=== PATIENT | male | born 1980 | race Caucasian/White ===

== ENCOUNTER 2021-09-08 09:34 | Day surgery (SDC) | payer OTHER ==
[2021-09-06 13:13] VITALS: BMI 29.5
[2021-09-08] MEDS ORDERED: KETAMINE HCL 500 MG/10 ML VIAL ONE (10:56)
[2021-09-08 12:42] VITALS: BP 122/70; PULSE 67; TEMP 97.8
== END 2021-09-08 12:25 | disposition home or self-care (01) ==
LOC: FECT 09:34 → EDBD 11:00 → FECT 12:25
PROVIDERS: ATTEND Psychiatry & Neurology Psychiatry
PROC: GZB4ZZZ Other Electroconvulsive Therapy (ICD-10-PCS; principal; 2021-09-08 11:00)
DX: F32.9 Major depressive disorder, single episode, unspecified (principal)
CPT/HCPCS: 90870; 94760

== ENCOUNTER 2021-09-09 06:20 | Day surgery (SDC) | payer OTHER ==
[2021-09-06 13:32] VITALS: BMI 29.5
[2021-09-09] MEDS ORDERED: KETAMINE HCL 500 MG/10 ML VIAL ONE (07:53)
[2021-09-09 09:35] VITALS: PULSE 76; TEMP 98.1
[2021-09-09 09:37] VITALS: BP 130/84
== END 2021-09-09 09:30 | disposition home or self-care (01) ==
LOC: FECT 06:20
PROVIDERS: ATTEND Psychiatry & Neurology Psychiatry
PROC: GZB4ZZZ Other Electroconvulsive Therapy (ICD-10-PCS; principal; 2021-09-09 08:30)
DX: F32.9 Major depressive disorder, single episode, unspecified (principal)
CPT/HCPCS: 90870; 94760; C9803; U0003; U0005

== ENCOUNTER 2021-09-15 06:25 | Day surgery (SDC) | payer OTHER ==
[2021-09-08 07:56] VITALS: BMI 29.5
[2021-09-15 09:41] VITALS: TEMP 97.8
[2021-09-15 10:02] VITALS: BP 131/82; PULSE 69
== END 2021-09-15 10:00 | disposition home or self-care (01) ==
LOC: FECT 06:25
PROVIDERS: ATTEND Psychiatry & Neurology Psychiatry
PROC: GZB4ZZZ Other Electroconvulsive Therapy (ICD-10-PCS; principal; 2021-09-15 08:30)
DX: F32.9 Major depressive disorder, single episode, unspecified (principal)
CPT/HCPCS: 90870; 94760

== ENCOUNTER 2021-09-16 06:33 | Day surgery (SDC) | payer OTHER ==
[2021-09-13 13:03] VITALS: BMI 29.5
[2021-09-16] MEDS ORDERED: KETAMINE HCL 500 MG/10 ML VIAL ONE (08:18)
[2021-09-16 09:11] VITALS: TEMP 97.8
[2021-09-16 09:37] VITALS: BP 130/83; PULSE 84
== END 2021-09-16 09:45 | disposition home or self-care (01) ==
LOC: FECT 06:33
PROVIDERS: ATTEND Psychiatry & Neurology Psychiatry
PROC: GZB4ZZZ Other Electroconvulsive Therapy (ICD-10-PCS; principal; 2021-09-16 07:30)
DX: F32.9 Major depressive disorder, single episode, unspecified (principal)
CPT/HCPCS: 90870; 94760; C9803; U0003; U0005

== ENCOUNTER 2021-09-19 09:05 | Day surgery (SDC) | payer OTHER ==
[2021-09-13 13:25] VITALS: BMI 29.5
[2021-09-19] MEDS ORDERED: KETAMINE HCL 500 MG/10 ML VIAL ONE (10:29)
[2021-09-19 11:45] VITALS: TEMP 97.8
[2021-09-19 12:16] VITALS: BP 129/89; PULSE 73
== END 2021-09-19 12:21 | disposition home or self-care (01) ==
LOC: FECT 09:05
PROVIDERS: ATTEND Psychiatry & Neurology Psychiatry
PROC: GZB4ZZZ Other Electroconvulsive Therapy (ICD-10-PCS; principal; 2021-09-19 08:00)
DX: F32.9 Major depressive disorder, single episode, unspecified (principal)
CPT/HCPCS: 90870; 94760; C9803; U0003; U0005

== ENCOUNTER 2021-09-22 08:34 | Day surgery (SDC) | payer OTHER ==
[2021-09-14 14:56] VITALS: BMI 29.5
[2021-09-22] MEDS ORDERED: KETAMINE HCL 500 MG/10 ML VIAL ONE (09:33)
[2021-09-22 10:38] VITALS: TEMP 97.8
[2021-09-22 10:57] VITALS: BP 135/90; PULSE 84
== END 2021-09-22 11:00 | disposition home or self-care (01) ==
LOC: FECT 08:34
PROVIDERS: ATTEND Psychiatry & Neurology Psychiatry
PROC: GZB4ZZZ Other Electroconvulsive Therapy (ICD-10-PCS; principal; 2021-09-22 09:30)
DX: F32.9 Major depressive disorder, single episode, unspecified (principal)
CPT/HCPCS: 90870; 94760

== ENCOUNTER 2021-09-23 07:19 | Day surgery (SDC) | payer OTHER ==
[2021-09-14 15:00] VITALS: BMI 29.5
[2021-09-23] MEDS ORDERED: PROPOFOL 20 ML ONE (08:15)
[2021-09-23] MEDS ORDERED: SUCCINYLCHOLINE CHLORIDE 200 MG/10 ML SYRINGE ONE (08:15)
[2021-09-23] MEDS ORDERED: KETAMINE HCL 500 MG/10 ML VIAL ONE (09:02)
[2021-09-23 11:50] VITALS: BP 122/71; PULSE 84; TEMP 97.8
== END 2021-09-23 10:30 | disposition home or self-care (01) ==
LOC: FECT 07:19
PROVIDERS: ATTEND Psychiatry & Neurology Psychiatry
PROC: GZB4ZZZ Other Electroconvulsive Therapy (ICD-10-PCS; principal; 2021-09-23 08:30)
DX: F32.9 Major depressive disorder, single episode, unspecified (principal)
CPT/HCPCS: 90870; 94760; C9803; U0003; U0005

== ENCOUNTER 2021-09-26 08:02 | Day surgery (SDC) | payer OTHER ==
[2021-09-26 08:20] VITALS: TEMP 97.3; BMI 29.5
[2021-09-26] MEDS ORDERED: KETAMINE HCL 500 MG/10 ML VIAL ONE (09:58)
[2021-09-26] MEDS ORDERED: LACTATED RINGERS SOLUTION 1,000 ML IV SCH (11:30)
[2021-09-26 11:31] VITALS: BP 131/81; PULSE 66
== END 2021-09-26 11:35 | disposition home or self-care (01) ==
LOC: FECT 08:02
PROVIDERS: ATTEND Psychiatry & Neurology Psychiatry
PROC: GZB4ZZZ Other Electroconvulsive Therapy (ICD-10-PCS; principal; 2021-09-26 09:30)
DX: F32.9 Major depressive disorder, single episode, unspecified (principal)
CPT/HCPCS: 90870; 94760; C9803; U0003; U0005

== ENCOUNTER 2021-09-28 06:29 | Day surgery (SDC) | payer OTHER ==
[2021-09-28 06:55] VITALS: BMI 29.5
[2021-09-28] MEDS ORDERED: KETAMINE HCL 500 MG/10 ML VIAL ONE (07:14)
[2021-09-28] MEDS ORDERED: LABETALOL HCL 5 MG/1 ML (100MG/20 ML VIAL) ONE (07:31)
[2021-09-28] MEDS ORDERED: LABETALOL HCL 5 MG/1 ML (100MG/20 ML VIAL) IVPUSH ONE (07:41)
[2021-09-28 08:17] VITALS: PULSE 75; TEMP 98.4
[2021-09-28 09:18] VITALS: BP 125/80
== END 2021-09-28 08:45 | disposition home or self-care (01) ==
LOC: FECT 06:29
PROVIDERS: ATTEND Psychiatry & Neurology Psychiatry
PROC: GZB4ZZZ Other Electroconvulsive Therapy (ICD-10-PCS; principal; 2021-09-28 07:45)
DX: F32.9 Major depressive disorder, single episode, unspecified (principal)
CPT/HCPCS: 90870; 94760; C9803; U0003; U0005

== ENCOUNTER 2021-10-03 07:31 | Day surgery (SDC) | payer OTHER ==
[2021-10-03 08:06] VITALS: BMI 30.6
[2021-10-03] MEDS ORDERED: KETAMINE HCL 500 MG/10 ML VIAL ONE (09:01)
[2021-10-03 09:42] VITALS: TEMP 97.6
[2021-10-03 10:45] VITALS: BP 131/81; PULSE 77
== END 2021-10-03 10:40 | disposition home or self-care (01) ==
LOC: FECT 07:31
PROVIDERS: ATTEND Psychiatry & Neurology Psychiatry
PROC: GZB4ZZZ Other Electroconvulsive Therapy (ICD-10-PCS; principal; 2021-10-03 09:00)
DX: F32.9 Major depressive disorder, single episode, unspecified (principal)
CPT/HCPCS: 90870; 94760; C9803; U0003; U0005

== ENCOUNTER 2021-10-06 06:24 | Day surgery (SDC) | payer OTHER ==
[2021-10-06 07:00] VITALS: BMI 30.5
[2021-10-06] MEDS ORDERED: KETAMINE HCL 500 MG/10 ML VIAL ONE (08:04)
[2021-10-06 09:20] VITALS: TEMP 98
[2021-10-06 09:31] VITALS: BP 141/94; PULSE 88
== END 2021-10-06 09:35 | disposition home or self-care (01) ==
LOC: FECT 06:24
PROVIDERS: ATTEND Psychiatry & Neurology Psychiatry
PROC: GZB4ZZZ Other Electroconvulsive Therapy (ICD-10-PCS; principal; 2021-10-06 08:00)
DX: F32.9 Major depressive disorder, single episode, unspecified (principal)
CPT/HCPCS: 90870; 94760; C9803; U0003; U0005

== ENCOUNTER 2021-10-10 08:31 | Day surgery (SDC) | payer OTHER ==
[2021-10-07 15:52] VITALS: BMI 30.5
[2021-10-10] MEDS ORDERED: PROPOFOL 20 ML ONE (10:32)
[2021-10-10 11:07] VITALS: TEMP 97.5
[2021-10-10 11:44] VITALS: BP 155/91; PULSE 66
== END 2021-10-10 11:40 | disposition home or self-care (01) ==
LOC: FECT 08:31
PROVIDERS: ATTEND Psychiatry & Neurology Psychiatry
PROC: GZB4ZZZ Other Electroconvulsive Therapy (ICD-10-PCS; principal; 2021-10-10 10:00)
DX: F33.2 Major depressive disorder, recurrent severe without psychotic features (principal)
CPT/HCPCS: 90870; 94760

== ENCOUNTER 2021-10-17 07:26 | Day surgery (SDC) | payer OTHER ==
[2021-10-14 11:38] VITALS: BMI 29.5
[2021-10-17] MEDS ORDERED: KETAMINE HCL 500 MG/10 ML VIAL ONE (09:52)
[2021-10-17 10:56] VITALS: TEMP 97.6
[2021-10-17 11:46] VITALS: BP 131/81; PULSE 76
== END 2021-10-17 11:30 | disposition home or self-care (01) ==
LOC: FECT 07:26
PROVIDERS: ATTEND Psychiatry & Neurology Psychiatry
PROC: GZB4ZZZ Other Electroconvulsive Therapy (ICD-10-PCS; principal; 2021-10-17 09:30)
DX: F32.9 Major depressive disorder, single episode, unspecified (principal)
CPT/HCPCS: 90870; 94760

== ENCOUNTER 2021-10-24 08:06 | Day surgery (SDC) | payer OTHER ==
[2021-10-21 16:51] VITALS: BMI 29.5
[2021-10-24 10:29] VITALS: TEMP 98.2
[2021-10-24 10:47] VITALS: BP 133/88; PULSE 73
== END 2021-10-24 11:05 | disposition home or self-care (01) ==
LOC: FECT 08:06
PROVIDERS: ATTEND Psychiatry & Neurology Psychiatry
PROC: GZB4ZZZ Other Electroconvulsive Therapy (ICD-10-PCS; principal; 2021-10-24)
DX: F33.2 Major depressive disorder, recurrent severe without psychotic features (principal)
CPT/HCPCS: 90870; 94760

== ENCOUNTER 2021-11-07 11:55 | Day surgery (SDC) | payer OTHER ==
[2021-10-06 13:32] VITALS: BMI 30.5
[2021-11-07] MEDS ORDERED: KETAMINE HCL 500 MG/10 ML VIAL ONE (13:20)
[2021-11-07] MEDS ORDERED: KETOROLAC TROMETHAMINE 30 MG/1 ML VIAL ONE (13:26)
[2021-11-07] MEDS ORDERED: LIDOCAINE HCL/PF 2% SDV 5ML VIAL ONE (13:28)
[2021-11-07] MEDS: LABETALOL HCL 5 MG/1 ML (100MG/20 ML VIAL) IVPUSH ONE ×2 (13:55→14:20)
[2021-11-07] MEDS ORDERED: LABETALOL HCL 5 MG/1 ML (100MG/20 ML VIAL) ONE (13:55)
[2021-11-07 14:42] VITALS: TEMP 98.1
[2021-11-07 14:52] VITALS: BP 137/77; PULSE 84
== END 2021-11-07 15:00 | disposition home or self-care (01) ==
LOC: FECT 11:55 → SUATTDRO 11:55 → FECT 15:00
PROVIDERS: ATTEND Nurse Practitioner Acute Care
PROC: GZB4ZZZ Other Electroconvulsive Therapy (ICD-10-PCS; principal; 2021-11-07 13:00)
DX: F32.9 Major depressive disorder, single episode, unspecified (principal)
CPT/HCPCS: 90870; 94760

== ENCOUNTER 2021-11-14 10:15 | Day surgery (SDC) | payer OTHER ==
[2021-11-08 12:27] VITALS: BMI 30.5
[2021-11-14] MEDS ORDERED: KETAMINE HCL 500 MG/10 ML VIAL ONE (11:46)
[2021-11-14 13:54] VITALS: BP 130/80; PULSE 77; TEMP 97.9
== END 2021-11-14 13:54 | disposition home or self-care (01) ==
LOC: FECT 10:15
PROVIDERS: ATTEND Psychiatry & Neurology Psychiatry
PROC: GZB4ZZZ Other Electroconvulsive Therapy (ICD-10-PCS; principal; 2021-11-14 11:00)
DX: F33.2 Major depressive disorder, recurrent severe without psychotic features (principal)
CPT/HCPCS: 90870; 94760

== ENCOUNTER 2021-11-22 06:28 | Day surgery (SDC) | payer OTHER ==
[2021-11-15 15:58] VITALS: BMI 30.5
[2021-11-22] MEDS ORDERED: KETAMINE HCL 500 MG/10 ML VIAL ONE (08:35)
[2021-11-22] MEDS ORDERED: LABETALOL HCL 5 MG/1 ML (100MG/20 ML VIAL) IVPUSH ONE (09:22)
[2021-11-22 09:43] VITALS: PULSE 82
[2021-11-22 10:20] VITALS: BP 142/89; TEMP 97.9
== END 2021-11-22 10:30 | disposition home or self-care (01) ==
LOC: FECT 06:28
PROVIDERS: ATTEND Psychiatry & Neurology Psychiatry
PROC: GZB4ZZZ Other Electroconvulsive Therapy (ICD-10-PCS; principal; 2021-11-22 08:30)
DX: F33.2 Major depressive disorder, recurrent severe without psychotic features (principal)
CPT/HCPCS: 90870; 94760

== ENCOUNTER 2021-11-28 06:28 | Day surgery (SDC) | payer OTHER ==
[2021-11-22 17:33] VITALS: BMI 30.5
[2021-11-28] MEDS ORDERED: KETAMINE HCL 500 MG/10 ML VIAL ONE (07:17)
[2021-11-28 08:53] VITALS: TEMP 97.6
[2021-11-28 09:24] VITALS: BP 126/80; PULSE 71
== END 2021-11-28 09:26 | disposition home or self-care (01) ==
LOC: FECT 06:28
PROVIDERS: ATTEND Psychiatry & Neurology Psychiatry
PROC: GZB4ZZZ Other Electroconvulsive Therapy (ICD-10-PCS; principal; 2021-11-28 08:30)
DX: F33.2 Major depressive disorder, recurrent severe without psychotic features (principal)
CPT/HCPCS: 90870; 94760

== ENCOUNTER 2021-12-05 06:30 | Day surgery (SDC) | payer OTHER ==
[2021-12-02 07:51] VITALS: BMI 30.5
[2021-12-05] MEDS ORDERED: KETAMINE HCL 500 MG/10 ML VIAL ONE (09:27)
[2021-12-05 10:21] VITALS: TEMP 97
[2021-12-05 11:08] VITALS: BP 133/89; PULSE 74
== END 2021-12-05 11:05 | disposition home or self-care (01) ==
LOC: FECT 06:30
PROVIDERS: ATTEND Psychiatry & Neurology Psychiatry
PROC: GZB4ZZZ Other Electroconvulsive Therapy (ICD-10-PCS; principal; 2021-12-05 08:30)
DX: F33.2 Major depressive disorder, recurrent severe without psychotic features (principal)
CPT/HCPCS: 90870; 94760; C9803; U0003; U0005

== ENCOUNTER 2021-12-12 09:19 | Day surgery (SDC) | payer OTHER ==
[2021-12-09 07:41] VITALS: BMI 30.5
[2021-12-12] MEDS ORDERED: KETAMINE HCL 500 MG/10 ML VIAL ONE (10:56)
[2021-12-12 12:31] VITALS: BP 118/77; PULSE 66; TEMP 98
== END 2021-12-12 12:30 | disposition home or self-care (01) ==
LOC: FECT 09:19
PROVIDERS: ATTEND Psychiatry & Neurology Psychiatry
PROC: GZB4ZZZ Other Electroconvulsive Therapy (ICD-10-PCS; principal; 2021-12-12 10:30)
DX: F32.9 Major depressive disorder, single episode, unspecified (principal)
CPT/HCPCS: 90870; 94760

== ENCOUNTER → 2021-12-19 | Day surgery (SDC) | payer OTHER ==
[2021-12-19 07:17] VITALS: BMI 30.5
[2021-12-19 08:54] VITALS: PULSE 78; TEMP 97.5
[2021-12-19 09:13] VITALS: BP 123/78
== END | disposition home or self-care (01) ==
LOC: FECT 06:18
PROVIDERS: ATTEND Psychiatry & Neurology Psychiatry
PROC: GZB4ZZZ Other Electroconvulsive Therapy (ICD-10-PCS; principal; 2021-12-19 08:00)
DX: F33.2 Major depressive disorder, recurrent severe without psychotic features (principal)
CPT/HCPCS: 90870; 94760

== ENCOUNTER 2021-12-27 07:22 | Day surgery (SDC) | payer OTHER ==
[2021-12-27 07:50] VITALS: BMI 30.5
[2021-12-27 10:22] VITALS: BP 132/90; PULSE 66; TEMP 97.7
== END 2021-12-27 10:40 | disposition home or self-care (01) ==
LOC: FECT 07:22
PROVIDERS: ATTEND Psychiatry & Neurology Psychiatry
PROC: GZB4ZZZ Other Electroconvulsive Therapy (ICD-10-PCS; principal; 2021-12-27 09:30)
DX: F33.2 Major depressive disorder, recurrent severe without psychotic features (principal)
CPT/HCPCS: 90870; 94760

== ENCOUNTER 2022-01-02 05:53 | Day surgery (SDC) | payer OTHER ==
[2021-12-27 17:20] VITALS: BMI 30.5
[2022-01-02 09:43] VITALS: TEMP 97.7
[2022-01-02 09:44] VITALS: BP 128/81; PULSE 62
== END 2022-01-02 09:46 | disposition home or self-care (01) ==
LOC: FECT 05:53
PROVIDERS: ATTEND Psychiatry & Neurology Psychiatry
PROC: GZB4ZZZ Other Electroconvulsive Therapy (ICD-10-PCS; principal; 2022-01-02 08:20)
DX: F33.2 Major depressive disorder, recurrent severe without psychotic features (principal)
CPT/HCPCS: 90870; 94760

== ENCOUNTER 2022-01-09 06:14 | Day surgery (SDC) | payer OTHER ==
[2022-01-05 16:18] VITALS: BMI 30.5
[2022-01-09 07:04] VITALS: TEMP 97
[2022-01-09] MEDS ORDERED: KETAMINE HCL 500 MG/10 ML VIAL ONE (07:37)
[2022-01-09 09:16] VITALS: BP 129/82; PULSE 76
== END 2022-01-09 09:17 | disposition home or self-care (01) ==
LOC: FECT 06:14
PROVIDERS: ATTEND Psychiatry & Neurology Psychiatry
PROC: GZB4ZZZ Other Electroconvulsive Therapy (ICD-10-PCS; principal; 2022-01-09 08:00)
DX: F33.2 Major depressive disorder, recurrent severe without psychotic features (principal)
CPT/HCPCS: 90870; 94760

== ENCOUNTER 2022-01-16 06:12 | Day surgery (SDC) | payer OTHER ==
[2022-01-12 07:45] VITALS: BMI 30.5
[2022-01-16] MEDS ORDERED: KETAMINE HCL 500 MG/10 ML VIAL ONE (07:54)
[2022-01-16 08:54] VITALS: TEMP 97.6
[2022-01-16 09:21] VITALS: BP 139/89; PULSE 71
[2022-01-17 14:09] LABS: SARS-CoV-2 NAA Not Detected (Not Detected)
== END 2022-01-16 09:23 | disposition home or self-care (01) ==
LOC: FECT 06:12
PROVIDERS: ATTEND Psychiatry & Neurology Psychiatry
PROC: GZB4ZZZ Other Electroconvulsive Therapy (ICD-10-PCS; principal; 2022-01-16 08:10)
DX: F33.2 Major depressive disorder, recurrent severe without psychotic features (principal)
CPT/HCPCS: 90870; 94760; C9803; U0003; U0005

== ENCOUNTER 2022-01-19 06:06 | Day surgery (SDC) | payer OTHER ==
[2022-01-16 09:20] VITALS: BMI 30.5
[2022-01-19] MEDS ORDERED: KETAMINE HCL 500 MG/10 ML VIAL ONE (08:52)
[2022-01-19 09:47] VITALS: BP 139/97; PULSE 70; TEMP 98
== END 2022-01-19 10:17 | disposition home or self-care (01) ==
LOC: FECT 06:06
PROVIDERS: ATTEND Psychiatry & Neurology Psychiatry
PROC: GZB4ZZZ Other Electroconvulsive Therapy (ICD-10-PCS; principal; 2022-01-19 09:04)
DX: F32.9 Major depressive disorder, single episode, unspecified (principal)
CPT/HCPCS: 90870; 94760

== ENCOUNTER 2022-01-30 05:53 | Day surgery (SDC) | payer OTHER ==
[2022-01-23 16:52] VITALS: BMI 30.5
[2022-01-30] MEDS ORDERED: KETAMINE HCL 500 MG/10 ML VIAL ONE (07:13)
[2022-01-30 08:14] VITALS: PULSE 76
[2022-01-30 08:31] VITALS: BP 130/76; TEMP 98
== END 2022-01-30 09:05 | disposition home or self-care (01) ==
LOC: FECT 05:53
PROVIDERS: ATTEND Psychiatry & Neurology Psychiatry
PROC: GZB4ZZZ Other Electroconvulsive Therapy (ICD-10-PCS; principal; 2022-01-30 07:25)
DX: F33.2 Major depressive disorder, recurrent severe without psychotic features (principal)
CPT/HCPCS: 90870; 94760

== ENCOUNTER 2022-02-16 08:08 | Day surgery (SDC) | payer OTHER ==
[2022-02-01 08:51] VITALS: BMI 30.5
[2022-02-16] MEDS ORDERED: KETAMINE HCL 500 MG/10 ML VIAL ONE (09:01)
[2022-02-16 10:20] VITALS: TEMP 98.4
[2022-02-16 11:42] VITALS: BP 135/103; PULSE 76
== END 2022-02-16 11:15 | disposition home or self-care (01) ==
LOC: FECT 08:08
PROVIDERS: ATTEND Psychiatry & Neurology Psychiatry
PROC: GZB4ZZZ Other Electroconvulsive Therapy (ICD-10-PCS; principal; 2022-02-16 09:15)
DX: F32.9 Major depressive disorder, single episode, unspecified (principal)
CPT/HCPCS: 90870; 94760

== ENCOUNTER 2022-02-23 07:38 | Day surgery (SDC) | payer OTHER ==
[2022-02-23 08:33] VITALS: BMI 30.5
[2022-02-23] MEDS ORDERED: KETAMINE HCL 500 MG/10 ML VIAL ONE (10:16)
[2022-02-23] MEDS ORDERED: PROPOFOL 20 ML ONE (10:18)
[2022-02-23 11:10] VITALS: TEMP 98.1
[2022-02-23 11:37] VITALS: BP 144/97; PULSE 79
== END 2022-02-23 11:40 | disposition home or self-care (01) ==
LOC: FECT 07:38
PROVIDERS: ATTEND Psychiatry & Neurology Psychiatry
PROC: GZB4ZZZ Other Electroconvulsive Therapy (ICD-10-PCS; principal; 2022-02-23 10:34)
DX: F32.9 Major depressive disorder, single episode, unspecified (principal)
CPT/HCPCS: 90870; 94760

== ENCOUNTER 2022-03-02 06:02 | Day surgery (SDC) | payer OTHER ==
[2022-02-27 08:17] VITALS: BMI 30.5
[2022-03-02] MEDS ORDERED: KETAMINE HCL 500 MG/10 ML VIAL ONE (07:51)
[2022-03-02] MEDS ORDERED: KETOROLAC TROMETHAMINE 30 MG/1 ML VIAL ONE (08:11)
[2022-03-02] MEDS ORDERED: ONDANSETRON 4 MG/2 ML VIAL ONE (08:11)
[2022-03-02 09:07] VITALS: TEMP 98.4
[2022-03-02 09:25] VITALS: BP 134/89; PULSE 68
== END 2022-03-02 09:30 | disposition home or self-care (01) ==
LOC: FECT 06:02
PROVIDERS: ATTEND Psychiatry & Neurology Psychiatry
PROC: GZB4ZZZ Other Electroconvulsive Therapy (ICD-10-PCS; principal; 2022-03-02 08:07)
DX: F32.9 Major depressive disorder, single episode, unspecified (principal)
CPT/HCPCS: 90870; 94760

== ENCOUNTER 2022-03-09 07:44 | Day surgery (SDC) | payer OTHER ==
[2022-03-03 12:24] VITALS: BMI 30.5
[2022-03-09 08:47] LABS: HEMATOCRIT 39.5 % (35.4-49); HEMOGLOBIN 14.1 G/dL (11.7-16.9); MCH 34.4 pg (25.7-33.7); MCHC 35.6 g/dl (32.0-35.9); MEAN CELL VOLUME 96.6 fl (80-96); PLATELET COUNT 212.1 10^3/uL (134-434); RBC 4.09 10^6/uL (4.00-5.60); RDW 13.6 % (11.9-15.9); WHITE BLOOD COUNT 4.8 10^3/uL (4.0-10.8)
[2022-03-09 09:05] LABS: ALBUMIN 4.3 g/dl (3.4-5.0); BILIRUBIN,TOTAL 0.8 mg/dl (0.2-1); CALCIUM 9.5 mg/dl (8.5-10); CREATININE 1.1 mg/dl (0.55-1.3); MAGNESIUM 2.1 mg/dL (1.8-2.4); TOT PROT 6.8 g/dl (6.4-8.2)
[2022-03-09] MEDS ORDERED: KETAMINE HCL 500 MG/10 ML VIAL ONE (09:41)
[2022-03-09 10:43] VITALS: BP 134/71; PULSE 75; TEMP 97.8
== END 2022-03-09 11:10 | disposition home or self-care (01) ==
LOC: FECT 07:44
PROVIDERS: ATTEND Psychiatry & Neurology Psychiatry
PROC: GZB4ZZZ Other Electroconvulsive Therapy (ICD-10-PCS; principal; 2022-03-09 09:49)
DX: F32.9 Major depressive disorder, single episode, unspecified (principal)
CPT/HCPCS: 36415; 80053; 83735; 85025; 90870; 93005; 94760

== ENCOUNTER 2022-03-16 06:02 | Day surgery (SDC) | payer OTHER ==
[2022-03-13 11:45] VITALS: BMI 30.5
[2022-03-16] MEDS ORDERED: KETAMINE HCL 500 MG/10 ML VIAL ONE (07:32)
[2022-03-16] MEDS ORDERED: SUCCINYLCHOLINE CHLORIDE 200 MG/10 ML SYRINGE ONE ×3 (07:47→08:49)
[2022-03-16] MEDS ORDERED: PROPOFOL 20 ML ONE ×3 (07:47→08:49)
[2022-03-16 09:15] VITALS: TEMP 97.5
[2022-03-16 09:18] VITALS: BP 116/78; PULSE 68
== END 2022-03-16 09:15 | disposition home or self-care (01) ==
LOC: FECT 06:02
PROVIDERS: ATTEND Psychiatry & Neurology Psychiatry
PROC: GZB4ZZZ Other Electroconvulsive Therapy (ICD-10-PCS; principal; 2022-03-16 07:40)
DX: F33.2 Major depressive disorder, recurrent severe without psychotic features (principal)
CPT/HCPCS: 90870; 94760

== ENCOUNTER 2022-04-06 08:07 | Day surgery (SDC) | payer OTHER ==
[2022-04-06 08:48] VITALS: BMI 30.5
[2022-04-06] MEDS ORDERED: KETAMINE HCL 500 MG/10 ML VIAL ONE (09:43)
[2022-04-06 10:41] VITALS: BP 132/84; TEMP 97.8
[2022-04-06 11:01] VITALS: PULSE 74
== END 2022-04-06 11:14 | disposition home or self-care (01) ==
LOC: FECT 08:07
PROVIDERS: ATTEND Psychiatry & Neurology Psychiatry
PROC: GZB4ZZZ Other Electroconvulsive Therapy (ICD-10-PCS; principal; 2022-04-06 09:59)
DX: F32.9 Major depressive disorder, single episode, unspecified (principal)
CPT/HCPCS: 90870; 94760

== ENCOUNTER 2022-04-13 06:53 | Day surgery (SDC) | payer OTHER ==
[2022-04-11 15:18] VITALS: BMI 30.5
[2022-04-13] MEDS ORDERED: KETAMINE HCL 500 MG/10 ML VIAL ONE (08:13)
[2022-04-13] MEDS ORDERED: ACETAMINOPHEN INJECTION 100 ML IVPB ONE (08:13)
[2022-04-13 09:07] VITALS: BP 127/82; PULSE 69
[2022-04-13 09:24] VITALS: TEMP 97.8
== END 2022-04-13 09:40 | disposition home or self-care (01) ==
LOC: FECT 06:53
PROVIDERS: ATTEND Psychiatry & Neurology Psychiatry
PROC: GZB4ZZZ Other Electroconvulsive Therapy (ICD-10-PCS; principal; 2022-04-13 08:27)
DX: F32.9 Major depressive disorder, single episode, unspecified (principal)
CPT/HCPCS: 90870; 94760

== ENCOUNTER 2022-04-20 06:05 | Day surgery (SDC) | payer OTHER ==
[2022-04-17 09:52] VITALS: BMI 30.5
[2022-04-20] MEDS ORDERED: KETAMINE HCL 500 MG/10 ML VIAL ONE (07:26)
[2022-04-20] MEDS ORDERED: ACETAMINOPHEN INJECTION 100 ML IVPB ONE (07:28)
[2022-04-20 08:20] VITALS: TEMP 98
[2022-04-20 08:47] VITALS: BP 146/89; PULSE 77
== END 2022-04-20 08:50 | disposition home or self-care (01) ==
LOC: FECT 06:05
PROVIDERS: ATTEND Psychiatry & Neurology Psychiatry
PROC: GZB4ZZZ Other Electroconvulsive Therapy (ICD-10-PCS; principal; 2022-04-20 07:39)
DX: F32.9 Major depressive disorder, single episode, unspecified (principal)
CPT/HCPCS: 90870; 94760

== ENCOUNTER 2022-04-27 06:00 | Day surgery (SDC) | payer OTHER ==
[2022-04-20 16:42] VITALS: BMI 30.5
[2022-04-27] MEDS ORDERED: KETAMINE HCL 200 MG/20 ML VIAL ONE (07:33)
[2022-04-27 08:23] VITALS: TEMP 98.1
[2022-04-27 08:48] VITALS: BP 118/72; PULSE 71
== END 2022-04-27 08:50 | disposition home or self-care (01) ==
LOC: FECT 06:00
PROVIDERS: ATTEND Psychiatry & Neurology Psychiatry
PROC: GZB4ZZZ Other Electroconvulsive Therapy (ICD-10-PCS; principal; 2022-04-27 07:39)
DX: F32.9 Major depressive disorder, single episode, unspecified (principal)
CPT/HCPCS: 90870; 94760

== ENCOUNTER 2022-05-04 05:59 | Day surgery (SDC) | payer OTHER ==
[2022-05-01 14:34] VITALS: BMI 30.5
[2022-05-04] MEDS ORDERED: KETAMINE HCL 500 MG/10 ML VIAL ONE (07:52)
[2022-05-04] MEDS ORDERED: PROPOFOL 20 ML ONE (07:53)
[2022-05-04] MEDS ORDERED: SUCCINYLCHOLINE CHLORIDE 200 MG/10 ML SYRINGE ONE (07:58)
[2022-05-04] MEDS ORDERED: ONDANSETRON 4 MG/2 ML VIAL ONE (07:58)
[2022-05-04] MEDS ORDERED: KETOROLAC TROMETHAMINE 30 MG/1 ML VIAL ONE (07:58)
[2022-05-04 08:55] VITALS: TEMP 98.6
[2022-05-04 09:19] VITALS: BP 145/89; PULSE 77
[2022-05-04] MEDS ORDERED: LACTATED RINGERS SOLUTION 1,000 ML IV SCH (10:45)
== END 2022-05-04 09:20 | disposition home or self-care (01) ==
LOC: FECT 05:59
PROVIDERS: ATTEND Psychiatry & Neurology Psychiatry
PROC: GZB4ZZZ Other Electroconvulsive Therapy (ICD-10-PCS; principal; 2022-05-04 08:01)
DX: F32.9 Major depressive disorder, single episode, unspecified (principal)
CPT/HCPCS: 90870; 94760

== ENCOUNTER 2022-05-11 07:55 | Day surgery (SDC) | payer OTHER ==
[2022-05-05 08:42] VITALS: BMI 30.5
[2022-05-11] MEDS ORDERED: PROPOFOL 20 ML ONE (12:02)
[2022-05-11] MEDS ORDERED: KETAMINE HCL 500 MG/10 ML VIAL ONE (12:26)
[2022-05-11 13:38] VITALS: TEMP 97.8
[2022-05-11 14:13] VITALS: BP 133/80; PULSE 69
== END 2022-05-11 14:10 | disposition home or self-care (01) ==
LOC: FECT 07:55
PROVIDERS: ATTEND Psychiatry & Neurology Psychiatry
PROC: GZB4ZZZ Other Electroconvulsive Therapy (ICD-10-PCS; principal; 2022-05-11 12:42)
DX: F32.9 Major depressive disorder, single episode, unspecified (principal)
CPT/HCPCS: 90870; 94760; C9803-CS; U0003; U0005

== ENCOUNTER 2022-05-18 06:35 | Day surgery (SDC) | payer OTHER ==
[2022-05-18 07:13] VITALS: BMI 29.5
[2022-05-18] MEDS ORDERED: KETAMINE HCL 500 MG/10 ML VIAL ONE (07:45)
[2022-05-18 08:15] VITALS: TEMP 97.8
[2022-05-18 09:04] VITALS: BP 129/71; PULSE 79
== END 2022-05-18 09:00 | disposition home or self-care (01) ==
LOC: FECT 06:35
PROVIDERS: ATTEND Psychiatry & Neurology Psychiatry
PROC: GZB4ZZZ Other Electroconvulsive Therapy (ICD-10-PCS; principal; 2022-05-18 07:54)
DX: F32.A Depression, unspecified (principal)
CPT/HCPCS: 90870; 94760

== ENCOUNTER 2022-05-30 06:02 | Day surgery (SDC) | payer OTHER ==
[2022-05-23 15:54] VITALS: BMI 29.5
== END 2022-05-31 07:00 | disposition home or self-care (01) ==
LOC: FECT 06:02
PROVIDERS: ATTEND Psychiatry & Neurology Psychiatry
PROC: GZB4ZZZ Other Electroconvulsive Therapy (ICD-10-PCS; principal; 2022-05-30)
DX: F33.9 Major depressive disorder, recurrent, unspecified (principal); Z53.8 Procedure and treatment not carried out for other reasons
CPT/HCPCS: C9803-CS; U0003; U0005

== ENCOUNTER 2022-06-01 06:03 | Day surgery (SDC) | payer OTHER ==
[2022-05-31 12:56] VITALS: BMI 29.5
[2022-06-01] MEDS ORDERED: KETOROLAC TROMETHAMINE 30 MG/1 ML VIAL ONE (07:18)
[2022-06-01] MEDS ORDERED: KETAMINE HCL 500 MG/10 ML VIAL ONE (07:18)
[2022-06-01] MEDS ORDERED: ONDANSETRON 4 MG/2 ML VIAL ONE (07:18)
[2022-06-01 08:21] VITALS: PULSE 84; RESP 18
[2022-06-01 08:51] VITALS: BP 149/85; TEMP 98
== END 2022-06-01 08:45 | disposition home or self-care (01) ==
LOC: FECT 06:03
PROVIDERS: ATTEND Psychiatry & Neurology Psychiatry
PROC: GZB4ZZZ Other Electroconvulsive Therapy (ICD-10-PCS; principal; 2022-06-01 07:35)
DX: F33.9 Major depressive disorder, recurrent, unspecified (principal)
CPT/HCPCS: 90870; 94760

== ENCOUNTER 2022-06-15 07:56 | Day surgery (SDC) | payer OTHER ==
[2022-06-07 13:30] VITALS: BMI 29.5
[2022-06-15] MEDS ORDERED: SUCCINYLCHOLINE CHLORIDE 200 MG/10 ML SYRINGE ONE (08:29)
[2022-06-15] MEDS ORDERED: KETAMINE HCL 500 MG/10 ML VIAL ONE (09:28)
[2022-06-15 10:33] VITALS: TEMP 97.8
[2022-06-15 10:51] VITALS: BP 123/84; PULSE 75; RESP 16
== END 2022-06-15 11:00 | disposition home or self-care (01) ==
LOC: FECT 07:56
PROVIDERS: ATTEND Psychiatry & Neurology Psychiatry
PROC: GZB4ZZZ Other Electroconvulsive Therapy (ICD-10-PCS; principal; 2022-06-15 09:39)
DX: F32.9 Major depressive disorder, single episode, unspecified (principal)
CPT/HCPCS: 90870; 93005; 94760

== ENCOUNTER 2022-06-29 06:09 | Day surgery (SDC) | payer OTHER ==
[2022-06-29 06:36] VITALS: RESP 16; BMI 29.5
[2022-06-29] MEDS ORDERED: KETAMINE HCL 500 MG/10 ML VIAL ONE (07:05)
[2022-06-29 08:08] VITALS: BP 126/80; PULSE 70; TEMP 98
== END 2022-06-29 08:35 | disposition home or self-care (01) ==
LOC: FECT 06:09
PROVIDERS: ATTEND Psychiatry & Neurology Psychiatry
PROC: GZB4ZZZ Other Electroconvulsive Therapy (ICD-10-PCS; principal; 2022-06-29 07:23)
DX: F32.9 Major depressive disorder, single episode, unspecified (principal)
CPT/HCPCS: 90870; 94760

== ENCOUNTER 2022-07-13 06:02 | Day surgery (SDC) | payer OTHER ==
[2022-07-07 12:30] VITALS: BMI 29.5
[2022-07-13] MEDS ORDERED: KETAMINE HCL 500 MG/10 ML VIAL ONE (07:13)
[2022-07-13 08:26] VITALS: RESP 20; TEMP 97.6
[2022-07-13 08:51] VITALS: BP 116/76; PULSE 72
== END 2022-07-13 08:45 | disposition home or self-care (01) ==
LOC: FASU 06:02
PROVIDERS: ATTEND Psychiatry & Neurology Psychiatry
PROC: GZB4ZZZ Other Electroconvulsive Therapy (ICD-10-PCS; principal; 2022-07-13 07:43)
DX: F33.2 Major depressive disorder, recurrent severe without psychotic features (principal)
CPT/HCPCS: 90870; 94760

== ENCOUNTER 2022-07-20 08:49 | Day surgery (SDC) | payer OTHER ==
[2022-07-18 14:24] VITALS: BMI 29.5
[2022-07-20] MEDS ORDERED: KETAMINE HCL 500 MG/10 ML VIAL ONE (11:25)
[2022-07-20] MEDS ORDERED: SUCCINYLCHOLINE CHLORIDE 200 MG/10 ML SYRINGE ONE (11:31)
[2022-07-20] MEDS ORDERED: PROPOFOL 20 ML ONE (11:31)
[2022-07-20 12:24] VITALS: PULSE 81
[2022-07-20 12:48] VITALS: BP 131/82; RESP 18; TEMP 97.8
== END 2022-07-20 12:51 | disposition home or self-care (01) ==
LOC: FECT 08:49
PROVIDERS: ATTEND Psychiatry & Neurology Psychiatry
PROC: GZB4ZZZ Other Electroconvulsive Therapy (ICD-10-PCS; principal; 2022-07-20 11:36)
DX: F33.2 Major depressive disorder, recurrent severe without psychotic features (principal)
CPT/HCPCS: 90870; 94760

== ENCOUNTER 2022-08-03 06:14 | Day surgery (SDC) | payer OTHER ==
[2022-08-01 13:56] VITALS: BMI 29.5
[2022-08-03 08:25] VITALS: TEMP 97.7
[2022-08-03 08:34] VITALS: PULSE 63; RESP 16
[2022-08-03 12:47] VITALS: BP 106/79
== END 2022-08-03 08:55 | disposition home or self-care (01) ==
LOC: FECT 06:14
PROVIDERS: ATTEND Psychiatry & Neurology Psychiatry
PROC: GZB4ZZZ Other Electroconvulsive Therapy (ICD-10-PCS; principal; 2022-08-03 08:06)
DX: F32.A Depression, unspecified (principal)
CPT/HCPCS: 90870; 94760

== ENCOUNTER → 2022-08-10 | Day surgery (SDC) | payer OTHER ==
[2022-08-08 08:17] VITALS: BMI 29.5
[2022-08-10 08:50] VITALS: RESP 18
[2022-08-10 09:30] VITALS: PULSE 72; TEMP 97.5
[2022-08-10 09:37] VITALS: BP 122/77
== END | disposition home or self-care (01) ==
LOC: FECT 06:12
PROVIDERS: ATTEND Psychiatry & Neurology Psychiatry
PROC: GZB4ZZZ Other Electroconvulsive Therapy (ICD-10-PCS; principal; 2022-08-10 08:13)
DX: F33.9 Major depressive disorder, recurrent, unspecified (principal)
CPT/HCPCS: 90870; 94760

== ENCOUNTER 2022-08-24 06:05 | Day surgery (SDC) | payer OTHER ==
[2022-08-16 08:41] VITALS: BMI 29.5
[2022-08-24] MEDS ORDERED: KETAMINE HCL 500 MG/10 ML VIAL ONE (07:24)
[2022-08-24 07:57] VITALS: RESP 16
[2022-08-24 08:58] VITALS: BP 131/87; PULSE 64; TEMP 97.5
== END 2022-08-24 09:00 | disposition home or self-care (01) ==
LOC: FECT 06:05
PROVIDERS: ATTEND Psychiatry & Neurology Psychiatry
PROC: GZB4ZZZ Other Electroconvulsive Therapy (ICD-10-PCS; principal; 2022-08-24 07:36)
DX: F32.A Depression, unspecified (principal)
CPT/HCPCS: 90870; 94760

== ENCOUNTER 2022-09-07 08:10 | Day surgery (SDC) | payer OTHER ==
[2022-09-07 09:19] LABS: ALBUMIN 3.6 g/dl (3.4-5.0); BILIRUBIN,TOTAL 0.7 mg/dl (0.2-1); CALCIUM 8.9 mg/dl (8.5-10); CREATININE 1.1 mg/dl (0.55-1.3); TOT PROT 6.3 g/dl (6.4-8.2)
[2022-09-07 11:08] VITALS: TEMP 97.9; BMI 29.2
[2022-09-07 11:35] LABS: BASO % 0.8 % (0-2.0); EOS % 1.3 % (0-4.5); HEMOGLOBIN 13.3 GM/dL (11.7-16.9); MCH 32.1 pg (25.7-33.7); MCHC 33.3 g/dl (32.0-35.9); MEAN CELL VOLUME 96.7 fl (80-96); MEAN PLT VOLUME 8.7 fl (7.5-11.1); MONO % 7.5 % (3.8-10.2); NEUT % 60.4 % (42.8-82.8); PLATELET COUNT 230 10^3/uL (134-434); RBC 4.13 M/mm3 (4.00-5.60); RDW 13.5 % (11.9-15.9); WHITE BLOOD COUNT 6.4 K/mm3 (4.0-10.0)
[2022-09-07] MEDS ORDERED: KETAMINE HCL 500 MG/10 ML VIAL ONE (12:09)
[2022-09-07 15:58] VITALS: BP 151/104; PULSE 78; RESP 16
== END 2022-09-07 13:45 | disposition home or self-care (01) ==
LOC: FECT 08:10
PROVIDERS: ATTEND Psychiatry & Neurology Psychiatry
PROC: GZB4ZZZ Other Electroconvulsive Therapy (ICD-10-PCS; principal; 2022-09-07 12:14)
DX: F32.A Depression, unspecified (principal)
CPT/HCPCS: 36415; 80053; 85025; 87426; 90870; 94760; C9803-CS; U0003; U0005

== ENCOUNTER 2022-09-21 06:11 | Day surgery (SDC) | payer OTHER ==
[2022-09-19 15:04] VITALS: BMI 29.2
[2022-09-21] MEDS ORDERED: KETAMINE HCL 500 MG/10 ML VIAL ONE (07:31)
[2022-09-21 08:38] VITALS: PULSE 72; RESP 16
[2022-09-21 09:24] VITALS: BP 129/72; TEMP 98
== END 2022-09-21 09:20 | disposition home or self-care (01) ==
LOC: FECT 06:11
PROVIDERS: ATTEND Psychiatry & Neurology Psychiatry
PROC: GZB4ZZZ Other Electroconvulsive Therapy (ICD-10-PCS; principal; 2022-09-21 07:51)
DX: F32.A Depression, unspecified (principal)
CPT/HCPCS: 90870; 94760

== ENCOUNTER 2022-10-12 10:15 | Day surgery (SDC) | payer OTHER ==
[2022-10-09 17:05] VITALS: BMI 29.2
[2022-10-12] MEDS ORDERED: KETAMINE HCL 500 MG/10 ML VIAL ONE (11:25)
[2022-10-12 13:16] VITALS: BP 142/84; PULSE 78; RESP 16; TEMP 97.8
== END 2022-10-12 13:00 | disposition home or self-care (01) ==
LOC: FECT 10:15
PROVIDERS: ATTEND Psychiatry & Neurology Psychiatry
PROC: GZB4ZZZ Other Electroconvulsive Therapy (ICD-10-PCS; principal; 2022-10-12 11:58)
DX: F32.A Depression, unspecified (principal)
CPT/HCPCS: 90870; 93005; 94760; C9803-CS; U0003; U0005

== ENCOUNTER 2023-04-05 07:02 | Day surgery (SDC) | payer OTHER ==
[2023-04-04 14:36] VITALS: BMI 30.7
[2023-04-05 08:24] LABS: ALBUMIN 3.8 g/dl (3.4-5.0); BILIRUBIN,TOTAL 0.4 mg/dl (0.2-1); CALCIUM 9.3 mg/dl (8.5-10); CREATININE 1.2 mg/dl (0.55-1.3); POTASSIUM 3.7 mmol/L (3.5-5.1); TOT PROT 6.4 g/dl (6.4-8.2)
[2023-04-05 08:33] LABS: HEMOGLOBIN 14.3 G/dL (11.7-16.9); MCH 32.2 pg (25.7-33.7); MCHC 33.2 g/dl (32.0-35.9); PLATELET COUNT 235.9 10^3/uL (134-434); RBC 4.43 10^6/uL (4.00-5.60); WHITE BLOOD COUNT 6.4 10^3/uL (4.0-10.8)
[2023-04-05] MEDS ORDERED: KETAMINE HCL 500 MG/10 ML VIAL ONE (10:05)
[2023-04-05] MEDS ORDERED: LIDOCAINE HCL/PF 2% SDV 5ML VIAL ONE (10:11)
[2023-04-05] MEDS ORDERED: METOPROLOL TARTRATE 5 MG/5 ML VIAL ONE (10:20)
[2023-04-05] MEDS ORDERED: ACETAMINOPHEN 500 MG TABLET (FP) PO PRN (10:36)
[2023-04-05] MEDS ORDERED: PROMETHAZINE HCL 25 MG/1 ML VIAL IVPB PRN (10:36)
[2023-04-05] MEDS ORDERED: hydrALAZINE HCL 20 MG/ML VIAL IVPUSH ONE (10:44)
[2023-04-05] MEDS ORDERED: LACTATED RINGERS SOLUTION 1,000 ML IV SCH (10:45)
[2023-04-05 10:58] VITALS: TEMP 98.5
[2023-04-05 11:48] VITALS: RESP 18
[2023-04-05 11:49] VITALS: BP 125/75; PULSE 87
== END 2023-04-05 11:45 | disposition home or self-care (01) ==
LOC: FECT 07:02
PROVIDERS: ATTEND Psychiatry & Neurology Psychiatry
PROC: GZB4ZZZ Other Electroconvulsive Therapy (ICD-10-PCS; principal; 2023-04-05 10:16)
DX: F32.A Depression, unspecified (principal)
CPT/HCPCS: 36415; 80053; 85027; 90870; 93005; 94760

== ENCOUNTER 2023-04-12 09:17 | Day surgery (SDC) | payer OTHER ==
[2023-04-09 16:03] VITALS: BMI 30.7
[2023-04-12] MEDS ORDERED: KETAMINE HCL 500 MG/10 ML VIAL ONE (11:50)
[2023-04-12 12:35] VITALS: RESP 16; TEMP 97.4
[2023-04-12 13:14] VITALS: BP 139/84; PULSE 81
== END 2023-04-12 13:19 | disposition home or self-care (01) ==
LOC: FECT 09:17
PROVIDERS: ATTEND Psychiatry & Neurology Psychiatry
PROC: GZB4ZZZ Other Electroconvulsive Therapy (ICD-10-PCS; principal; 2023-04-12 12:14)
DX: F33.2 Major depressive disorder, recurrent severe without psychotic features (principal)
CPT/HCPCS: 90870; 94760

== ENCOUNTER 2023-04-19 07:54 | Day surgery (SDC) | payer OTHER ==
[2023-04-16 17:17] VITALS: BMI 30.7
[2023-04-19] MEDS ORDERED: KETAMINE HCL 500 MG/10 ML VIAL ONE (09:21)
[2023-04-19] MEDS ORDERED: PROPOFOL 20 ML ONE (09:29)
[2023-04-19] MEDS ORDERED: SUCCINYLCHOLINE CHLORIDE 200 MG/10 ML SYRINGE ONE (09:29)
[2023-04-19 12:13] VITALS: BP 117/59; PULSE 56; RESP 16; TEMP 97.8
== END 2023-04-19 10:45 | disposition home or self-care (01) ==
LOC: FECT 07:54
PROVIDERS: ATTEND Psychiatry & Neurology Psychiatry
PROC: GZB4ZZZ Other Electroconvulsive Therapy (ICD-10-PCS; principal; 2023-04-19 09:31)
DX: F33.9 Major depressive disorder, recurrent, unspecified (principal)
CPT/HCPCS: 90870; 94760

== ENCOUNTER 2023-04-26 08:18 | Day surgery (SDC) | payer OTHER ==
[2023-04-24 11:41] VITALS: BMI 30.1
[2023-04-26] MEDS ORDERED: KETAMINE HCL 500 MG/10 ML VIAL ONE (08:47)
[2023-04-26 10:25] VITALS: RESP 20; TEMP 97.7
[2023-04-26 10:27] VITALS: BP 123/82; PULSE 72
[2023-04-26] MEDS ORDERED: PROMETHAZINE HCL 25 MG/1 ML VIAL IVPB PRN (11:06)
[2023-04-26] MEDS ORDERED: ACETAMINOPHEN 500 MG TABLET (FP) PO PRN (11:06)
[2023-04-26] MEDS ORDERED: LACTATED RINGERS SOLUTION 1,000 ML IV SCH (11:15)
== END 2023-04-26 10:40 | disposition home or self-care (01) ==
LOC: FECT 08:18
PROVIDERS: ATTEND Psychiatry & Neurology Psychiatry
PROC: GZB4ZZZ Other Electroconvulsive Therapy (ICD-10-PCS; principal; 2023-04-26 09:30)
DX: F32.A Depression, unspecified (principal)
CPT/HCPCS: 90870; 94760

== ENCOUNTER 2023-05-03 07:03 | Day surgery (SDC) | payer OTHER ==
[2023-05-03] MEDS ORDERED: SUCCINYLCHOLINE CHLORIDE 200 MG/10 ML SYRINGE ONE (07:16)
[2023-05-03] MEDS ORDERED: DEXAMETHASONE SOD PHOSPHATE 4 MG/1 ML VIAL ONE (07:16)
[2023-05-03] MEDS ORDERED: KETOROLAC TROMETHAMINE 30 MG/1 ML VIAL ONE (07:16)
[2023-05-03] MEDS ORDERED: PROPOFOL 40 ML ONE (07:16)
[2023-05-03] MEDS ORDERED: ONDANSETRON 4 MG/2 ML VIAL ONE (07:16)
[2023-05-03] MEDS ORDERED: KETAMINE HCL 200 MG/20 ML VIAL ONE ×2 (07:17→07:18)
[2023-05-03 07:31] VITALS: BMI 30.1
[2023-05-03 08:48] VITALS: TEMP 97.7
[2023-05-03 09:44] VITALS: BP 131/84; PULSE 78; RESP 18
== END 2023-05-03 09:45 | disposition home or self-care (01) ==
LOC: FECT 07:03
PROVIDERS: ATTEND Psychiatry & Neurology Psychiatry
PROC: GZB4ZZZ Other Electroconvulsive Therapy (ICD-10-PCS; principal; 2023-05-03 08:28)
DX: F32.A Depression, unspecified (principal)
CPT/HCPCS: 90870; 94760

== ENCOUNTER 2023-05-11 08:15 | Day surgery (SDC) | payer OTHER ==
[~2023-05-11 08:15] MED LIST: LACTATED RINGERS SOLUTION 1,000 ML IV SCH
[2023-05-11 08:41] VITALS: BMI 29.5
[2023-05-11] MEDS ORDERED: KETAMINE HCL 500 MG/10 ML VIAL ONE (09:30)
[2023-05-11] MEDS ORDERED: ACETAMINOPHEN 500 MG TABLET (FP) PO PRN (10:06)
[2023-05-11] MEDS ORDERED: PROMETHAZINE HCL 25 MG/1 ML VIAL IVPB PRN (10:06)
[2023-05-11] MEDS ORDERED: LACTATED RINGERS SOLUTION 1,000 ML IV SCH (10:15)
[2023-05-11 10:27] VITALS: BP 121/76; PULSE 77; RESP 16
[2023-05-11 10:42] VITALS: TEMP 97.8
== END 2023-05-11 10:45 | disposition home or self-care (01) ==
LOC: FECT 08:15
PROVIDERS: ATTEND Psychiatry & Neurology Psychiatry
PROC: GZB4ZZZ Other Electroconvulsive Therapy (ICD-10-PCS; principal; 2023-05-11 09:47)
DX: F32.A Depression, unspecified (principal)
CPT/HCPCS: 90870; 94760

== ENCOUNTER 2023-05-17 08:45 | Day surgery (SDC) | payer OTHER ==
[2023-05-17 09:29] VITALS: BMI 29.3
[2023-05-17] MEDS ORDERED: KETAMINE HCL 500 MG/10 ML VIAL ONE (09:51)
[2023-05-17 10:51] VITALS: RESP 18; TEMP 98
[2023-05-17 11:22] VITALS: BP 121/74; PULSE 72
== END 2023-05-17 11:25 | disposition home or self-care (01) ==
LOC: FECT 08:45
PROVIDERS: ATTEND Psychiatry & Neurology Psychiatry
PROC: GZB4ZZZ Other Electroconvulsive Therapy (ICD-10-PCS; principal; 2023-05-17 10:12)
DX: F33.2 Major depressive disorder, recurrent severe without psychotic features (principal)
CPT/HCPCS: 90870; 94760

== ENCOUNTER 2023-06-07 07:25 | Day surgery (SDC) | payer OTHER ==
[2023-06-07 08:15] VITALS: BMI 29.1
[2023-06-07] MEDS ORDERED: KETAMINE HCL 500 MG/10 ML VIAL ONE (09:06)
[2023-06-07 09:48] VITALS: RESP 18
[2023-06-07 10:22] VITALS: TEMP 97.7
[2023-06-07 10:42] VITALS: BP 125/85; PULSE 77
== END 2023-06-07 10:40 | disposition home or self-care (01) ==
LOC: FECT 07:25
PROVIDERS: ATTEND Psychiatry & Neurology Psychiatry
PROC: GZB4ZZZ Other Electroconvulsive Therapy (ICD-10-PCS; principal; 2023-06-07 09:21)
DX: F33.9 Major depressive disorder, recurrent, unspecified (principal)
CPT/HCPCS: 90870; 94760

== ENCOUNTER 2023-06-14 08:14 | Day surgery (SDC) | payer OTHER ==
[2023-06-07 15:32] VITALS: BMI 29.0
[2023-06-14] MEDS ORDERED: KETAMINE HCL 500 MG/10 ML VIAL ONE (09:39)
[2023-06-14] MEDS ORDERED: PROPOFOL 20 ML ONE (09:43)
[2023-06-14 11:21] VITALS: BP 130/82; PULSE 64; RESP 18; TEMP 98.1
[2023-06-14] MEDS ORDERED: ONDANSETRON 4 MG/2 ML VIAL IVPUSH PRN (11:52)
[2023-06-14] MEDS ORDERED: LACTATED RINGERS SOLUTION 1,000 ML IV SCH (12:00)
== END 2023-06-14 11:00 | disposition home or self-care (01) ==
LOC: FECT 08:14
PROVIDERS: ATTEND Psychiatry & Neurology Psychiatry
PROC: GZB4ZZZ Other Electroconvulsive Therapy (ICD-10-PCS; principal; 2023-06-14 09:49)
DX: F33.2 Major depressive disorder, recurrent severe without psychotic features (principal)
CPT/HCPCS: 90870; 94760

== ENCOUNTER 2023-06-21 07:29 | Day surgery (SDC) | payer OTHER ==
[2023-06-15 11:56] VITALS: BMI 29.5
[2023-06-21] MEDS ORDERED: KETAMINE HCL 200 MG/20 ML VIAL ONE (08:26)
[2023-06-21] MEDS ORDERED: PROPOFOL 20 ML ONE (08:26)
[2023-06-21] MEDS ORDERED: SUCCINYLCHOLINE CHLORIDE 200 MG/10 ML SYRINGE ONE (08:26)
[2023-06-21 11:12] VITALS: PULSE 96; RESP 16; TEMP 98
[2023-06-21 14:14] VITALS: BP 138/84
== END 2023-06-21 10:20 | disposition home or self-care (01) ==
LOC: FECT 07:29
PROVIDERS: ATTEND Psychiatry & Neurology Psychiatry
PROC: GZB4ZZZ Other Electroconvulsive Therapy (ICD-10-PCS; principal; 2023-06-21 08:39)
DX: F32.A Depression, unspecified (principal)
CPT/HCPCS: 90870; 94760

== ENCOUNTER 2023-07-05 07:46 | Day surgery (SDC) | payer OTHER ==
[2023-06-27 07:54] VITALS: BMI 29.5
[2023-07-05] MEDS ORDERED: KETAMINE HCL 500 MG/10 ML VIAL ONE (08:59)
[2023-07-05 10:01] VITALS: PULSE 72; RESP 16; TEMP 98
[2023-07-05 10:19] VITALS: BP 150/98
== END 2023-07-05 10:19 | disposition home or self-care (01) ==
LOC: FECT 07:46
PROVIDERS: ATTEND Psychiatry & Neurology Psychiatry
PROC: GZB4ZZZ Other Electroconvulsive Therapy (ICD-10-PCS; principal; 2023-07-05 09:12)
DX: F32.A Depression, unspecified (principal)
CPT/HCPCS: 90870; 94760

== ENCOUNTER 2023-07-19 07:40 | Day surgery (SDC) | payer OTHER ==
[2023-07-18 07:07] VITALS: BMI 29.5
[2023-07-19] MEDS ORDERED: KETAMINE HCL 500 MG/10 ML VIAL ONE (08:30)
[2023-07-19 09:38] VITALS: RESP 18; TEMP 97.2
[2023-07-19 10:17] VITALS: BP 120/80; PULSE 74
== END 2023-07-19 10:10 | disposition home or self-care (01) ==
LOC: FECT 07:40
PROVIDERS: ATTEND Psychiatry & Neurology Psychiatry
PROC: GZB4ZZZ Other Electroconvulsive Therapy (ICD-10-PCS; principal; 2023-07-19 08:54)
DX: F32.A Depression, unspecified (principal)
CPT/HCPCS: 90870; 94760

== ENCOUNTER 2023-08-16 07:33 | Day surgery (SDC) | payer OTHER ==
[2023-08-16 08:03] VITALS: BMI 29.5
[2023-08-16] MEDS ORDERED: KETAMINE HCL 500 MG/10 ML VIAL ONE (08:33)
[2023-08-16] MEDS ORDERED: PROPOFOL 40 ML ONE (08:37)
[2023-08-16] MEDS ORDERED: ONDANSETRON 4 MG/2 ML VIAL ONE (08:48)
[2023-08-16] MEDS ORDERED: KETOROLAC TROMETHAMINE 30 MG/1 ML VIAL ONE (08:48)
[2023-08-16] MEDS ORDERED: DEXAMETHASONE SOD PHOSPHATE 4 MG/1 ML VIAL ONE (08:48)
[2023-08-16 09:49] VITALS: TEMP 98
[2023-08-16 09:56] VITALS: BP 124/79; PULSE 70; RESP 19
== END 2023-08-16 10:07 | disposition home or self-care (01) ==
LOC: FECT 07:33
PROVIDERS: ATTEND Psychiatry & Neurology Psychiatry
PROC: GZB4ZZZ Other Electroconvulsive Therapy (ICD-10-PCS; principal; 2023-08-16 08:56)
DX: F32.A Depression, unspecified (principal)
CPT/HCPCS: 90870; 94760

== ENCOUNTER 2023-08-30 08:06 | Day surgery (SDC) | payer OTHER ==
[2023-08-24 12:16] VITALS: BMI 29.5
[2023-08-30 11:05] VITALS: TEMP 98.3
[2023-08-30 11:28] VITALS: BP 149/90; PULSE 79; RESP 18
== END 2023-08-30 11:30 | disposition home or self-care (01) ==
LOC: FECT 08:06
PROVIDERS: ATTEND Psychiatry & Neurology Psychiatry
PROC: GZB4ZZZ Other Electroconvulsive Therapy (ICD-10-PCS; principal; 2023-08-30 10:18)
DX: F32.A Depression, unspecified (principal)
CPT/HCPCS: 90870; 94760

== ENCOUNTER 2023-09-20 10:01 | Day surgery (SDC) | payer OTHER ==
[2023-09-19 09:19] VITALS: BMI 29.5
[2023-09-20] MEDS ORDERED: KETAMINE HCL 500 MG/10 ML VIAL ONE (11:31)
[2023-09-20] MEDS ORDERED: LACTATED RINGERS SOLUTION 1,000 ML IV SCH (12:15)
[2023-09-20 12:34] VITALS: RESP 16; TEMP 99.1
[2023-09-20 13:17] VITALS: BP 132/83; PULSE 74
== END 2023-09-20 13:17 | disposition home or self-care (01) ==
LOC: FECT 10:01
PROVIDERS: ATTEND Student in an Organized Health Care Education/Training Program
PROC: GZB4ZZZ Other Electroconvulsive Therapy (ICD-10-PCS; principal; 2023-09-20 11:48)
DX: F32.A Depression, unspecified (principal)
CPT/HCPCS: 90870; 94760

== ENCOUNTER 2023-10-11 08:20 | Day surgery (SDC) | payer OTHER ==
[2023-10-01 11:48] VITALS: BMI 29.5
[2023-10-11 09:19] LABS: ALBUMIN 4.3 g/dl (3.4-5.0); BILIRUBIN,TOTAL 0.3 mg/dl (0.2-1); CALCIUM 9.4 mg/dl (8.5-10.1); CREATININE 1.2 mg/dl (0.6-1.3); POTASSIUM 4.2 mmol/L (3.5-5.1); TOT PROT 6.5 g/dl (6.4-8.2)
[2023-10-11 09:20] LABS: HEMATOCRIT 41.6 % (35.4-49); MCH 32.4 pg (25.7-33.7); MCHC 33.7 g/dl (32.0-35.9); MEAN PLT VOLUME 8.7 fl (7.5-11.1); PLATELET COUNT 202.8 10^3/uL (134-434); RBC 4.33 10^6/uL (4.00-5.60); RDW 14.2 % (11.9-15.9); WHITE BLOOD COUNT 5.7 10^3/uL (4.0-10.8)
[2023-10-11] MEDS ORDERED: KETAMINE HCL 100 MG/ML - 5ML VIAL ONE (10:19)
[2023-10-11 11:03] VITALS: RESP 16
[2023-10-11 11:49] VITALS: PULSE 78; TEMP 97.8
[2023-10-11 11:56] VITALS: BP 133/91
== END 2023-10-11 12:03 | disposition home or self-care (01) ==
LOC: FECT 08:20
PROVIDERS: ATTEND Student in an Organized Health Care Education/Training Program
PROC: GZB4ZZZ Other Electroconvulsive Therapy (ICD-10-PCS; principal; 2023-10-11 10:48)
DX: F32.2 Major depressive disorder, single episode, severe without psychotic features (principal)
CPT/HCPCS: 36415; 80053; 85027; 90870; 93005; 94760

== ENCOUNTER 2023-10-25 09:32 | Day surgery (SDC) | payer OTHER ==
[2023-10-19 13:56] VITALS: BMI 29.5
[2023-10-25 10:05] VITALS: RESP 18
[2023-10-25] MEDS ORDERED: KETAMINE HCL 100 MG/ML - 5ML VIAL ONE (11:30)
[2023-10-25] MEDS ORDERED: ONDANSETRON 4 MG/2 ML VIAL ONE (11:30)
[2023-10-25] MEDS ORDERED: KETOROLAC TROMETHAMINE 30 MG/1 ML VIAL ONE (11:30)
[2023-10-25] MEDS ORDERED: DEXAMETHASONE SOD PHOSPHATE 4 MG/1 ML VIAL ONE (11:31)
[2023-10-25] MEDS ORDERED: SUCCINYLCHOLINE CHLORIDE 200 MG/10 ML SYRINGE ONE (11:33)
[2023-10-25] MEDS ORDERED: PROPOFOL 20 ML ONE (11:35)
[2023-10-25 12:52] VITALS: TEMP 97.8
[2023-10-25 13:21] VITALS: BP 135/71; PULSE 78
== END 2023-10-25 13:10 | disposition home or self-care (01) ==
LOC: FECT 09:32
PROVIDERS: ATTEND Student in an Organized Health Care Education/Training Program
PROC: GZB4ZZZ Other Electroconvulsive Therapy (ICD-10-PCS; principal; 2023-10-25 11:51)
DX: F33.2 Major depressive disorder, recurrent severe without psychotic features (principal)
CPT/HCPCS: 90870; 94760

== ENCOUNTER 2023-11-08 07:51 | Day surgery (SDC) | payer OTHER ==
[2023-10-26 11:24] VITALS: BMI 29.5
[2023-11-08] MEDS ORDERED: KETAMINE HCL 100 MG/ML - 5ML VIAL ONE (10:18)
[2023-11-08 11:08] VITALS: TEMP 97.6
[2023-11-08 11:55] VITALS: BP 149/92; PULSE 82; RESP 28
== END 2023-11-08 12:10 | disposition home or self-care (01) ==
LOC: FECT 07:51
PROVIDERS: ATTEND Student in an Organized Health Care Education/Training Program
PROC: GZB4ZZZ Other Electroconvulsive Therapy (ICD-10-PCS; principal; 2023-11-08 10:49)
DX: F33.2 Major depressive disorder, recurrent severe without psychotic features (principal)
CPT/HCPCS: 90870; 94760

== ENCOUNTER 2023-11-22 08:10 | Day surgery (SDC) | payer OTHER ==
[2023-11-22 08:39] VITALS: BMI 29.5
[2023-11-22] MEDS ORDERED: KETAMINE HCL 100 MG/ML - 5ML VIAL ONE (10:37)
[2023-11-22 11:59] VITALS: BP 135/79; PULSE 77; RESP 18; TEMP 97.7
== END 2023-11-22 12:23 | disposition home or self-care (01) ==
LOC: FECT 08:10
PROVIDERS: ATTEND Student in an Organized Health Care Education/Training Program
PROC: GZB4ZZZ Other Electroconvulsive Therapy (ICD-10-PCS; principal; 2023-11-22 11:10)
DX: F33.2 Major depressive disorder, recurrent severe without psychotic features (principal)
CPT/HCPCS: 90870; 94760

== ENCOUNTER 2023-12-06 07:58 | Day surgery (SDC) | payer OTHER ==
[2023-11-27 11:33] VITALS: BMI 29.5
[2023-12-06] MEDS ORDERED: PROPOFOL 20 ML ONE (09:30)
[2023-12-06] MEDS ORDERED: KETAMINE HCL 100 MG/ML - 5ML VIAL ONE (09:37)
[2023-12-06 10:08] VITALS: TEMP 97.4
[2023-12-06 11:03] VITALS: BP 140/79; PULSE 84; RESP 18
== END 2023-12-06 10:45 | disposition home or self-care (01) ==
LOC: FECT 07:58
PROVIDERS: ATTEND Student in an Organized Health Care Education/Training Program
PROC: GZB4ZZZ Other Electroconvulsive Therapy (ICD-10-PCS; principal; 2023-12-06 09:00)
DX: F32.A Depression, unspecified (principal)
CPT/HCPCS: 90870; 94760

== ENCOUNTER 2023-12-20 09:35 | Day surgery (SDC) | payer OTHER ==
[2023-12-17 13:44] VITALS: BMI 29.5
[2023-12-20] MEDS ORDERED: KETAMINE HCL 100 MG/ML - 5ML VIAL ONE (10:43)
[2023-12-20] MEDS ORDERED: ACETAMINOPHEN 1000 MG/100 ML BAG IVPB PRN (11:15)
[2023-12-20 11:48] VITALS: RESP 19; TEMP 98.2
[2023-12-20 12:08] VITALS: BP 146/90; PULSE 74
== END 2023-12-20 12:12 | disposition home or self-care (01) ==
LOC: FECT 09:35
PROVIDERS: ATTEND Student in an Organized Health Care Education/Training Program
PROC: GZB4ZZZ Other Electroconvulsive Therapy (ICD-10-PCS; principal; 2023-12-20 11:04)
DX: F32.A Depression, unspecified (principal)
CPT/HCPCS: 90870; 94760

== ENCOUNTER 2024-01-03 08:57 | Day surgery (SDC) | payer OTHER ==
[2024-01-03 07:35] VITALS: BMI 29.5
[2024-01-03] MEDS ORDERED: LACTATED RINGERS SOLUTION 1,000 ML IV SCH (09:45)
[2024-01-03] MEDS ORDERED: KETAMINE HCL 100 MG/ML - 5ML VIAL ONE (10:31)
[2024-01-03 11:12] VITALS: RESP 16
[2024-01-03 11:38] VITALS: PULSE 78; TEMP 97.9
[2024-01-03 11:54] VITALS: BP 138/76
== END 2024-01-03 11:55 | disposition home or self-care (01) ==
LOC: FECT 08:57
PROVIDERS: ATTEND Psychiatry & Neurology Psychiatry
PROC: GZB4ZZZ Other Electroconvulsive Therapy (ICD-10-PCS; principal; 2024-01-03 10:43)
DX: F32.A Depression, unspecified (principal)
CPT/HCPCS: 90870; 94760

== ENCOUNTER 2024-01-17 09:07 | Day surgery (SDC) | payer OTHER ==
[2024-01-11 16:03] VITALS: BMI 29.5
[2024-01-17] MEDS ORDERED: KETAMINE HCL 100 MG/ML - 5ML VIAL ONE (10:07)
[2024-01-17 11:47] VITALS: RESP 18
[2024-01-17 12:12] VITALS: PULSE 69
[2024-01-17 13:16] VITALS: BP 130/84; TEMP 98
== END 2024-01-17 12:40 | disposition home or self-care (01) ==
LOC: FECT 09:07
PROVIDERS: ATTEND Student in an Organized Health Care Education/Training Program
PROC: GZB4ZZZ Other Electroconvulsive Therapy (ICD-10-PCS; principal; 2024-01-17 11:01)
DX: F32.A Depression, unspecified (principal)
CPT/HCPCS: 90870; 94760